=== PATIENT | male | born 1930 | race Caucasian/White ===

== ENCOUNTER 2016-11-08 14:00 | Inpatient (IN) | payer MEDICARE, OTHER ==
[~2016-11-08] VITALS: Ht 170.2 cm; Wt 64.2 kg
--- NOTE | ~2016-11-08 | OR ---
[facility] AGE: 86 Y [address] ROOM: [address] [address] LOCATION: GPCU ADMIT DATE: 11/08/2016 OR/Procedure Report DISCHARGE DATE: FAMILY PHYSICIAN: Jefferson Pandey MD ATTENDING PHYSICIAN: BETO SEPULVEDA SURGEON: Migel Karimi MD EMT I/99: DATE OF PROCEDURE: 11/12/2016 PREOPERATIVE DIAGNOSES: 1. Gross hematuria. 2. Underlying benign prostatic hypertrophy with bladder outlet obstruction. 3. Urinary incontinence - multifactorial. 4. Chronic kidney disease. 5. Greater than 13-gcap-reec history of smoking. POSTOPERATIVE DIAGNOSES: 1. Gross hematuria. 2. Underlying benign prostatic hypertrophy with bladder outlet obstruction. 3. Urinary incontinence - multifactorial. 4. Chronic kidney disease. 5. Greater than 30-nrpk-ggjz history of smoking. 6. Extensive urothelial carcinoma. PROCEDURE PERFORMED: Cystoscopy with transurethral resection and fulguration of bladder tumor with aborted retrograde secondary to unidentifiable orifices. ANESTHESIA: Sedation. INDICATION: This is an 86-year-old gentleman admitted with increasing cardiopulmonary issues. He was noted to have gross hematuria. He has been evaluated from a cardiac standpoint. He has significant disease, but he is going to be managed medically. They wanted to go ahead with evaluation of his gross hematuria. He presents at this time for cystoscopy and upper tract evaluation. I would note that there were no obvious mass lesions on his ultrasound. DESCRIPTION OF PROCEDURE: Having obtained informed consent from his daughter who is his power of senior attorney, the patient was taken to the operating room. He was prepped and draped sterilely and in lithotomy position. IV sedation was administered. A 21-Monegasque cystoscope was assembled and guided into the urethra. The course of the urethra was unremarkable back to the prostate which demonstrated marked hypertrophy. That would be contributing to his incontinence as well as a functional component. Moving into the bladder, we saw oozing and extensive malignancy. It was difficult to find any area of the bladder that was not involved. His trigone was completely distorted. Orifices were unidentifiable. Bladder examination was undertaken using the 30- PATIENT'S NAME: SHENANDOAH [facility] AGE: 86 Y [address] ROOM: G6334 [place], [place] [address] [facility] ADMIT DATE: 11/08/2016 OR/Procedure Report DISCHARGE DATE: FAMILY PHYSICIAN: Jefferson Pandey MD ATTENDING PHYSICIAN: BETO SEPULVEDA and 70-degree lenses. Considering the issues, the retrogrades were irrelevant at this point. I aborted that. I placed a resectoscope. I took loops of tissue where he was having obvious bleeding. I then spent some time with a roller ball, cauterizing. At the conclusion, a 22-Monegasque 3-way catheter and a B and O suppository were placed. The patient is not a candidate for cystectomy. He has extensive disease, and he is not a candidate for resection cystoscopically. Considering his other issues, we will try to manage him conservatively. If bleeding is an issue, we could buy some time with nephrostomy tubes. I will discuss that with his daughter. She is his power of senior attorney. She is a nurse, and she will understand. MIGEL KARIMI MD [facility]/modl /[id number] CC: Jefferson Pandey MD d: 11/12/16 1344 t: 11/16/16 1214, OPERATIVE SUMMARY
--- NOTE | ~2016-11-08 | ECHO ---
Transthoracic Echocardiography Report (TTE) Demographics Patient Name DENA ALEXANDRE Date of Study 11/09/2016 Patient Number [id number] Visit Number [id number] Date of 1930 Room Number G6334 Accession Number [id number] Gender Male Age 86 year(s) Referring Dannie De Jesus Page Designer Howard Best Physician MD Lisbeth Brice MD RDCS, RVT Physician Interpreting Yessenia Souza Ranch Helper Physician Supervising Ordering Physician Yvette Brice MD, MD/MLP Nurse Stress Chief Communications Officer Conclusions Contractility Score Summary At rest the following contractility abnormalities were noted: Hypokinesis of the Mid anterior, the Mid julia-septal, the Apical inferior, the Apical septal, the Apical lateral, the Apical anterior, the Basal anterior, the Basal julia-lateral and the Apical cap segments; Akinesis of the Mid julia-lateral, the Mid infero-septal, the Mid inferior, the Mid infero-lateral, the Basal infero-lateral, the Basal julia-septal, the Basal infero-septal and the Basal inferior segments. Summary The estimated left ventricular ejection fraction is 20% due to severe hypokinesia involving all LV segments except the the lateral wall which is mild to moderately hypokinetic.LV wall thickness is normal.LV is mildly dilated and is globular. LA is severely dilated. LA pressures are increased. Moderate to severe MR. Possibly severe valvular and mild AR. Severely dilated RA. Increased RA pressures. RV is moderately dilated and is moderately hypokinetic. There is mild TR with mild pulmonary hypertension. The pulmonary pressure (RVSP) is 40 mmHg. Procedure Type of Study TTE procedure:2D Echocardiogram, M-Mode, Doppler , Color Doppler. Procedure Date Date: 11/09/2016 Start: 06:58 AM Study Location: Inpatient Portable Technical Quality: Good visualization Indications:Edema. Appropriate Use Criteria: 9 Patient Status: Routine HR: 51 bpm BP: 101/58 mmHg M-Mode/2D Measurements LV Diastolic Dimension: 5.79 cm LV Systolic Dimension: 5.22 cm LV Septum Diastolic: 0.92 cm LV PW Diastolic: 1.08 cm AO Root Dimension: 2.3 cm Cardiac Output: 1.58 l/min LA Dimension: 3.9 cm LVOT: 1.9 cm LVOT VTI: 10.9 cm RV Base: 3.39 cm LV Stroke volume: 30.89 ml RV Length: 8.18 cm TAPSE: 1.06 cm TDI-S': 5.81 cm/s Doppler Measurements AV Peak Velocity: 3.5 m/s MV Peak E-Wave: 0.83 m/s AV Peak Gradient: 49 mmHg MV Peak A-Wave: 0.99 m/s AV Mean Gradient: 30 mmHg MV E/A Ratio: 0.84 LVOT Peak Velocity: 0.48 m/s MV P1/2t: 22 msec AV P1/2t: 168 msec TR Gradient:32.49 mmHg Estimated RAP:8 mmHg Estimated PASP: 40.49 mmHg Estimated RVSP: 40 mmHg A' Septal Velocity: 0.05 m/s E' Septal Velocity: 0.03 m/s A' Lateral Velocity: 0.07 m/s E' Lateral Velocity: 0.06 m/s Findings Left Ventricle LV is globular and mildly dilated.LVEF is severely reduced at 20%.There is severe hypokinesia involving all segments except the lateral wall which is mild to moderately hypokinetic.LV wall thickness is normal.There is evidence for increased LA pressure. Right Ventricle Moderately reduced right ventricular function. RV is mild to moderately dilated. Left Atrium The left atrium is severely dilated. Right Atrium Severely dilated RA.Increased RA pressures. Mitral Valve Moderate to severe mitral regurgitation by color Doppler. Mild mitral annular calcification. Mild thickening of the mitral valve leaflets. Aortic Valve The aortic valve is severely sclerotic. There is moderate to severe aortic regurgitation by color Doppler. There is severe aortic stenosis by the Continuity Equation. The peak velocity is 3.5 m/s, the mean gradient is 30 mmHg, and the valve area based on the continuity equation is 0.42 cm2, stroke volume index is 18 ml/m2. Tricuspid Valve Mild tricuspid regurgitation by color Doppler. There is mild pulmonary hypertension. The pulmonary pressure (RVSP) is 40 mmHg. Pulmonic Valve Trivial pulmonic valve regurgitation by color Doppler. Pericardial Effusion No evidence of pericardial effusion. Miscellaneous Visualized portions of the aortic root and ascending aorta appear normal in size. Pleural Effusion No evidence of pleural effusion. Contractility Score LV regional wall motion:(0-Non visualized 1-Normal 2-Hypokinesis 3-Akinesis 4-Dyskinesis 5-Aneurysm) Signature dtt: Libby Casas dtd: 11/09/16 0658 Physician Self Edit
--- NOTE | ~2016-11-08 | CON ---
PATIENT'S NAME: DENA ALEXANDRE [facility] AGE: 86 Y [address] ROOM: [address] [place], [place] [address] LOCATION: GPCU ADMIT DATE: 11/08/2016 Consultation DISCHARGE DATE: FAMILY PHYSICIAN: Jefferson Pandey MD ATTENDING PHYSICIAN: BETO CRAWFORD DATE OF CONSULTATION: 11/09/2016 REFERRING PHYSICIAN: Libby Casas MD REASON FOR CONSULTATION: Need for diuresis, nurses unable to place Bermudez, plus hematuria. HISTORY: This is a pleasant, 86-year-old gentleman admitted with increasing cardiopulmonary issues. He had edema and shortness of breath. He was admitted for further evaluation and management. Prior to diuresis, catheter was ordered. The nurses were unable to get a catheter in, and I believe that Dr. Crawford also tried. We were consulted, but we were likely going to see him anyway as Dr. Pandey had suggested that he get his hematuria evaluated while he was here. Relative to that, Dena tells me he was having some difficulty voiding at home. His daughter, who is an RN as well as his power of assistant district attorney, tells me he was having more trouble than he admits to. He was having grossly bloody urine on occasion. In addition, he was having incontinence. He has previously been on an alpha mark. His daughter does not think he was taking that. Relative to the hematuria, it may be BPH related in this 86-year-old gentleman, but we find that he also has a greater than 54-zkkk-skdo history of smoking. He tells me he stopped smoking a few years ago. He was prepped and draped. An 18 coude catheter was placed. We find concentrated and bloody urine. Importantly, he was not in retention. The nurses had scanned him, and he only had a couple of 100 mL of residual. At this point, I am going to get him started back on combination therapy. He will be on tamsulosin and finasteride. I reviewed the indications, risks, and benefits for a cystoscopy and retrograde with his daughter. Again, she is a nurse and the power of assistant district attorney, and she understands and agrees. In the meantime, with his chronic renal insufficiency and his hematuria, I am going to check an ultrasound to rule out any mass lesions or any hydronephrosis. Otherwise, he can be optimized from a current cardiopulmonary standpoint, and we can hopefully get his urinary tract evaluated while he is here. IMPRESSION: 1. Nurses unable to place Bermudez catheter. PATIENT'S NAME: DENA ALEXANDRE [facility] AGE: 86 Y [address] ROOM: [place] [address] [facility]: 11/08/2016 Consultation DISCHARGE DATE: FAMILY PHYSICIAN: Jefferson Pandey MD ATTENDING PHYSICIAN: BETO CRAWFORD 2. History of gross hematuria and smoking. 3. Benign prostatic hypertrophy/bladder outlet obstruction. 4. Urinary incontinence-multifactorial. 5. Chronic kidney disease. PLAN: As above. Thank you for the consultation, and I will follow up his progress. MIGEL KARIMI MD [facility]/kelvin /[id number] CC: Jefferson Pandey MD d: 11/09/16 1516 t: 11/16/16 1211, CONSULTATION REPORT
--- NOTE | ~2016-11-08 | DS ---
PATIENT'S NAME: BETTIEROXIDENA Nic [facility] AGE: 86 Y [address] ROOM: G6[address] [place], [place] [address] LOCATION: GPCU ADMIT DATE: 11/08/2016 Discharge Summary DISCHARGE DATE: 11/15/2016 FAMILY PHYSICIAN: Jefferson Pandey MD ATTENDING PHYSICIAN: Babs Crawford FINAL DIAGNOSES: 1. Hematuria. 2. Large bladder mass, refused evaluation. 3. Right pleural effusion. 4. Acute on chronic diastolic congestive heart failure. 5. Aspiration pneumonia. 6. Anorexia. 7. Acute kidney injury on chronic kidney disease 3. CONSULTATIONS: 1. Urology, Dr. Sanchez. 2. Cardiology, Dr. Casas. 3. GI, Dr. Dominguez. 4. Pulmonology, Dr. Gaspar. PROCEDURES: Cystoscopy with Dr. Sanchez. REASON FOR ADMISSION: This is an 86-year-old male who presented from an outlying facility with multiple problems including hypoxia, bilateral lower extremity edema, and anorexia. The patient also had weight loss. He was transferred from a referral facility. He was found to have cardiomegaly with right pleural effusion and also was found to have hematuria with significant nocturia. He was then further admitted to [facility] for further evaluation and management of his multiple medical conditions. Please see Dr. Crawford's admission H and P for further details. DIAGNOSTIC STUDIES: A transthoracic echocardiogram was done and showed hypokinesis of the mid anterior, mid anteroseptal, apical inferior, apical septal, apical lateral, apical anterior, and basal anterior segments. Akinesis of the mid anterolateral, mid inferoseptal, mid inferior, mid inferolateral, basal inferolateral, and basal anteroseptal were also noted. Basal inferoseptal and basal inferior segment akinesis noted as well. Ejection fraction was 20% due to severe hypokinesia of all left ventricular segments. Lateral LV wall thickness was normal. LA severely dilated. LA pressures increased. Ooydnxwe-hv-ehusqj MR noted. Severe valvular and mild AR noted. Severely dilated right atrial pressures noted. RV moderately dilated, moderately hypokinetic. Mild TR with mild pulmonary hypertension, and RVSP of 40 mmHg was noted. [facility] 86 Y [address] ROOM: G[address] [place], [place] [address] LOCATION: GPCU ADMIT DATE: 11/08/2016 Discharge Summary DISCHARGE DATE: 11/15/2016 FAMILY PHYSICIAN: Jefferson Pandey MD ATTENDING PHYSICIAN: Babs Crawford The patient had increased cardiac enzymes. Troponin-I of 0.667 on admission, subsequently was 0.406. ProBNP 30,320. Serial CBCs were done. White count on admission was 10.8, at the time of discharge it was 11.4; platelet count 131 on admission and 113 at discharge; hemoglobin and hematocrit were within normal range. Serial BMPs were done. Electrolytes were within normal range. The patient's creatinine was 1.4 on admission, at the time of discharge it was 1.9; BUN 51 on admission and 48 at the time of discharge. Liver function tests were within normal range. PT/INR normal. Procalcitonin level less than 0.05. TSH 1.48. Prealbumin level 12. D-dimer elevated at 3.7. PSA 0.19. Ultrasound of the kidney was done on admission to rule out mass and showed no renal mass, hydronephrosis, or perinephric fluid identified. Atrophic changes of the right kidney were noted. Small amount of free fluid in the abdomen and pelvis was noted. Pleural fluid noted in the lower right hemothorax. CT imaging likely helpful. The patient underwent a modified barium swallow study that showed normal coaptation, showed aspiration of thin and nectar fluids. Cough reflex present. The patient underwent a V/Q scan for dyspnea and elevated D-dimer that showed severe COPD and low probability of PE. Chest x- ray was later done and showed severe COPD. Pleural and parenchymal opacity at the right chest base obscured the diaphragm, appears to consist of pleural fluid and atelectasis. No CHF was noted. A repeat chest x-ray was done for followup of right pleural effusion and showed emphysematous changes in the lung parenchyma with hyperinflation, opacity at the right infrahilar area and right base consistent with pleural fluid, and lung consolidation was noted. Slight improvement in overall radiographic appearance since prior imaging was noted. Ultrasound of the chest was done for pleural effusion and showed moderate-sized right pleural fluid collection. Urine culture showed diphtheroids. Blood culture was negative. Sputum culture showed Carmella albicans with gram-negative rods, few gram-positive cocci, rare gram-positive rods, and moderate white blood cells with few epithelial cells. Anaerobic culture was negative. HOSPITAL COURSE: The patient was admitted for evaluation and management of anorexia, increased shortness of breath, and generalized deconditioning. The patient was thought to have CHF. A 2D echocardiogram was done, and findings are as above. Cardiology, Dr. Casas, was consulted. The patient was given Lasix initially. He also had hematuria. Ultrasound of the kidneys was done. Dr. Sanchez was consulted, and findings were as above. The patient also had anorexia and weight loss. GI was consulted. They recommended endoscopy for the patient. The patient refused endoscopy. He was started on a Lasix infusion for his right pleural fluid collection and also findings of CHF. He was supplemented with potassium chloride as well during this. Bermudez catheter showed the patient had hematuria. The patient's ejection fraction was found to be 20%. Cardiology recommended optimizing medical therapy at this point of time. The patient was refusing all invasive PATIENT'S NAME: DENA ALEXANDRE [facility] AGE: 86 Y [address] ROOM: [place] [address] LOCATION: GPCU ADMIT DATE: 11/08/2016 Discharge Summary DISCHARGE DATE: 11/15/2016 FAMILY PHYSICIAN: Jefferson Pandey MD ATTENDING PHYSICIAN: Babs Crawford. Family also did not want any further invasive procedures. The patient wished to undergo cystoscopy. Dr. Sanchez was consulted, and the patient underwent a cystoscopy that showed a large bladder mass. The patient then decided to not undergo any further evaluation for his bladder mass. He underwent a modified barium swallow study and was initially placed on precautions based on the modified barium swallow study. He later decided that he did not want any further testing and just wanted to be made comfortable. He was placed on regular diet subsequently. His medications were then optimized. I did consult Dr. Gaspar who did a bedside ultrasound and found that the patient had moderate-sized right pleural effusion, but did not require a tap. The patient then decided that he wanted to be transferred to a swing bed in [place] near his home. He refused all further testing at this point of time. Plan is for the patient to go on hospice if he deteriorates. Family decided that the patient should be on hospice if further deteriorated. The patient will be discharged to [place] swing bed tomorrow morning. Please see Dr. Duarte's addendum for further details. The patient was discharged to [place] swing bed in stable condition. DISCHARGE INSTRUCTIONS: The patient is discharged to [facility] bed in stable condition. Follow up with Dr. Casas in [place]. Follow up with PCP in 3 to 4 days' time. The patient is DNR/DNI. Regular diet is recommended for the patient. No calorie count is needed. The patient is not n.p.o. Weightbearing is as tolerated. OT, PT, and Speech Therapy to evaluate and treat as indicated. O2 as needed to keep saturations more than 90%. CBC and BMP at followup with PCP. Flutter valve q.2 hours p.r.n. as needed. The patient has a urinary catheter that may be removed based on the patient's wishes or Urology recommendations. He may not have alcoholic beverages. Rehab potential is poor. Discharge potential is poor. The patient and family aware of condition and prognosis and were updated by me. May crush appropriate medications. DISCHARGE MEDICATIONS: 1. Amiodarone 100 mg p.o. b.i.d. for tachycardia. 2. Augmentin 875 mg p.o. b.i.d. for 3 days for aspiration pneumonia. 3. Lipitor 40 mg p.o. daily for dyslipidemia. 4. Proscar 5 mg p.o. daily for BPH. 5. Lasix 20 mg p.o. q.a.m. for CHF. 6. Isordil 5 mg p.o. t.i.d. for hypertension. 7. Protonix 40 mg p.o. daily for GERD. PATIENT'S NAME: EDNA ALEXANDRE [facility] AGE: 86 Y [address] ROOM: [facility] [place] [address] LOCATION: GPCU ADMIT DATE: 11/08/2016 Discharge Summary DISCHARGE DATE: 11/15/2016 FAMILY PHYSICIAN: Jefferson Pandey MD ATTENDING PHYSICIAN: Babs Crawford 8. Senokot one tablet p.o. q.h.s. for constipation. 9. [place] 5/325 mg 1 tablet p.o. q.6 hours p.r.n. pain. 10. Multivitamin one tablet p.o. daily supplement. This patient was managed by hospitalist and cardiology, pulmonology, and urology teams during this admission. GLORIA DAUGHERTY MD [place]/kelvin /[id number] d: 11/18/16 1408 t: 11/30/16 1343, DISCHARGE SUMMARY
--- NOTE | ~2016-11-08 | CON ---
[facility] AGE[facility] 86 Y [address] ROOM: [id number] [place], [place] [id number] [facility]: [facility] ADMIT DATE: 11/08/2016 Consultation DISCHARGE DATE: FAMILY PHYSICIAN: Jefferson Pandey MD ATTENDING PHYSICIAN: BETO CRAWFORD DATE OF CONSULTATION: 11/09/2016 REFERRING PHYSICIAN: Libby Casas MD An 86-year-old male patient of Dr. Pandey and Dr. Crawford. Dear colleagues: Thank you for asking me to see Mr Hurt, whom I am seeing on November 09, 2016, for swelling in his ankles as well as shortness of breath. He is slightly forgetful at this time, and he is not very clear about dates, but it appears as if he was reasonably well about a year ago. He notes at least for the past 6 months or even longer, he has been noticing slowly progressive worsening of shortness of breath to the point where he is currently in functional class III with no paroxysmal nocturnal dyspnea or orthopnea. He is now short of breath at rest. He denies having any chest pains. He is not very active anymore. He has no history of lightheadedness, dizziness, syncope, or presyncope. He denies any palpitation, even though he has a sense that there is something fluttering in his chest very briefly on rare occasions. His ankle has been swelling up for about 3 months. The patient has history of hypertension, and he quit smoking pipe 3 years ago. He denies diabetes, elevated cholesterol, or family history of premature coronary artery disease. There is no prior history of DE or angina or nitroglycerin use. There is no history of rheumatic fever, heart murmur, congestive heart failure, or atrial fibrillation that he knows of. MEDICATIONS: His current list of medications are: 1. Protonix 40 mg a day. 2. Finasteride 5 mg a day. 3. Losartan and hydrochlorothiazide 2 daily. 4. Aspirin 325 mg a day. 5. Tamsulosin 0.4 mg at bedtime. 6. Senna. 7. Furosemide 40 mg yesterday. ALLERGIES: NO KNOWN DRUG ALLERGIES. [facility] 86 Y [address] ROOM: [id number] [place] [id number] LOCATION: [facility] ADMIT DATE: 11/08/2016 Consultation DISCHARGE DATE: FAMILY PHYSICIAN: Jefferson Pandey MD ATTENDING PHYSICIAN: BETO CRAWFORD PAST MEDICAL HISTORY: 1. History of pelvic fracture in 2013 secondary to an accidental fall. 2. BPH. 3. Lymph node resection from left side of the jaw. 4. Tonsillectomy and adenoidectomy. 5. Bilateral cataract extraction. SOCIAL HISTORY: The patient is . He denies abusing alcohol. His appetite has been poor for 3 years. This is particularly true for meat. He has lost about 10 pounds in weight in the last 3 years but has gained some weight lately because of edema. His sleep is fair. 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 FAMILY HISTORY: No premature coronary artery disease. REVIEW OF SYSTEMS: A 12-point review of systems reveals the following positives. 1. Macular degeneration. 2. Hardness of hearing. 3. Occasional dry cough. 4. Benign prostatic hypertrophy. 5. Arthritis involving the ankles. PHYSICAL EXAMINATION: VITAL SIGNS: On examination, his blood pressure is 128/66, heart rate is in the 90s and regular, respiration is 16, afebrile. HEENT: Normal. NECK: Supple with no JVD, thyromegaly, lymphadenopathy, or carotid bruit. HEART: PMI is not well located. First and second heart sounds are regular. There are no added sounds. He does have a grade 2/6 ejection systolic murmur best heard in the aortic area. CHEST: Clear to auscultation with decreased breath sounds in the right base. ABDOMEN: Soft, nontender. EXTREMITIES: Reveal 1+ to 2+ edema. CENTRAL NERVOUS SYSTEM: Overall appears to be intact. LABORATORY AND DIAGNOSTIC DATA: His lab works reveal creatinine of 1.4, potassium 5.0. ProBNP of 30,320. Normal WBC and hemoglobin, platelet count is 103. Apparently, his chest x-ray reveals right-sided pleural effusion. ASSESSMENT: 1. An 86-year-old male patient with hypertension, who is an ex-pipe smoker PATIENT'S NAME: [facility] AGE: 86 Y [address] ROOM: [address] [place] [id number] LOC[facility]: [facility] ADMIT DATE: 11/08/2016 Consultation DISCHARGE DATE: FAMILY PHYSICIAN: Jefferson Pandey MD ATTENDING PHYSICIAN: BETO CRAWFORD with congestive heart failure. His echocardiogram today revealed an ejection fraction of 20% and has severe aortic stenosis as well as moderate to severe mitral regurgitation and mild pulmonary hypertension. 2. Chronic kidney disease. 3. Weight loss and poor appetite of unknown reasons. It could be his congestive heart failure causing problems too. RECOMMENDATIONS: 1. His D-dimer was elevated, so we will obtain a V/Q scan today. 2. Lovenox subcu daily. 3. We will hold of losartan for somewhat of a cushion for using diuretics. 4. Lasix infusion for about 6 hours today and evaluate his BUN, creatinine, as well as his fluid output before making any decisions regarding more diuresis. Again, appreciate this opportunity to participate in the care of Mr Hurt. In the meantime, we will also rule him out for DE as well. MD FLAVIA LY/kelvin /[id number] d: 11/09/16 2141 t: 11/30/16 1323, CONSULTATION REPORT
--- NOTE | ~2016-11-08 | HP ---
PATIENT'S NAME: DENA HURT [facility] AGE: 86 Y [address] ROOM: [id number] [place], [place] [address] LOCATION: [facility] ADMIT DATE: 11/08/2016 History & Physical DISCHARGE DATE: FAMILY PHYSICIAN: Jefferson Pandey MD ATTENDING PHYSICIAN: BETO SEPULVEDA DATE OF SERVICE: 11/08/2016 CHIEF COMPLAINT: Multiple generalized problems with hypoxia. HISTORY OF PRESENT ILLNESS: Mr. Hurt is an 86-year-old male who is a primary patient of Dr. Jefferson Pandey of [place], [place]. He reports that he was seen in the office this morning, Dr. Pandey told him he had multiple issues requiring further evaluation, and he was directed to come to our hospital and was directly admitted this afternoon. He reports "I am full of water, in my legs, and around my heart and scrotum." He reports that he has been short of breath for about 6 months. In addition, he reports "I have something wrong with my stomach." He reports that he can eat cereal and toast for breakfast, but after that he just cannot get the food down; although, he denies odynophagia and dysphagia, he said just looking at the food can make him nauseated, and he reports that the nausea comes suddenly, it is not like a lingering thing, but when it does, he will end up vomiting. In addition to the small breakfast that he eats, he says he will be able to get down a ezgh-o-vyotna of Boost mixed with some milk, bur other foods such as a steak he says I just can not get it down. He says he has a dull ache in the stomach, which is about constant. He says although he told the nurse he thought he had congestive heart failure; although, he reports he has not seen a heart doctor, I have no reports of any heart tests except for his chest x-ray and heart tests such as an echo. I did attempt to reach his primary care physician, Dr. Pandey, but that was after his office closed and there was no after hours contact number available. PAST MEDICAL HISTORY: Hypertension, BPH, and pelvic fracture in 2013. PAST SURGICAL HISTORY: Bilateral cataract resection (both done in [place]), lymph node resection from the left-side of his jaw in the distant past, and tonsillectomy. ALLERGIES: NO KNOWN DRUG ALLERGIES. HOME MEDICATIONS: 1. Aspirin 325 mg p.o. daily. PATIENT'S NAME: DENA HURT [facility] AGE: 86 Y [address] ROOM: [place] [address] LOCATION: [facility] ADMIT DATE: 11/08/2016 History & Physical DISCHARGE DATE: FAMILY PHYSICIAN: Jefferson Pandey MD ATTENDING PHYSICIAN: BETO SEPULVEDA 2. Losartan/hydrochlorothiazide 100/25 mg 1/2 to 1 tab p.o. daily. 3. Lutein tablet 6 mg p.o. daily. 4. Multiple vitamin 1 daily. 5. Spironolactone 25 mg at h.s. 6. Tamsulosin 0.5 mg at h.s. SOCIAL HISTORY: He is and he and his have lived together for 60 or more years since they have been . She is 10 years older than he is and recently had a stroke, was ill, and he said he is having a hard time caring for her. They have one daughter, her name is Rupal [place]. She is [id number]. 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 He is a former pipe smoker, he smoked a pipe for 50 years, few cigarettes, much more prior to that. He quit smoking his pipe 3 years ago, but did admit that he cheated a little bit after that. FAMILY HISTORY: His mother at 97-1/2 years old of an AK and stroke. His father in his 70s after a gallbladder operation with pneumonia. He has been getting around without any ambulatory assistance at home and he did not have any oxygen at home. REVIEW OF SYSTEMS: GENERAL: Positive for 12-14 pounds weight loss over the past 6 months and decreased appetite with excessive fatigue. HEENT: Negative for headache, blurred vision, and dizziness. Positive for history of cataract resection. Positive for reading glasses. Negative for any sinus congestion, stuffiness, nosebleeds, sore throat, or dysphagia. PULMONARY: He does say he gets dyspneic, he can walk 1-2 blocks, but has to "take it easy," and no orthopnea, intermittent cough, which is intermittently productive of clear sputum without wheezing or chest pain and he denies any blood in it. 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 He is unaware of having had a murmur. He reports the history of swelling in his legs, has been there for 3-4 months. GI: He reports occasional heartburn, but definitely denies odynophagia and dysphagia. The sudden episodes of nausea with some vomiting have been happening for about a year ago. He denies diarrhea. He says occasionally he will still have a soft stool, but with his decreased intake, that is not happening very much, and he has had some constipation. He definitely denies bloating with cramping or hematemesis, hematochezia, or melena. GENITOURINARY: He says he urinates every 2 hours at night and is alternating his water intake. Does not alter this pattern of urinating frequently at night. He has noticed blood in his urine "a little bit." He hardly has any flow; so, apparently he does have difficulty getting the flow started. He PATIENT'S NAME: DENA HURT [facility] AGE: 86 Y [address] ROOM: [id number] [place] [address] LOCATION: [facility] ADMIT DATE: 11/08/2016 History & Physical DISCHARGE DATE: FAMILY PHYSICIAN: Jefferson Pandey MD ATTENDING PHYSICIAN: BETO SEPULVEDA said he quit taking the medicine that he says that help him go; although, Flomax is still on his list, I am not sure when the last time he took that was. NEUROLOGIC: He denies weakness, numbness, confusion, dysarthria, syncope, or recent falls, but does admit that his balance is not great and he has to "watch my feet." He denies any memory loss. HEMATOLOGIC: He is not sure if he has anemia, but he denies abnormal bleeding, bruising, history of clots, and has no history of venous thromboembolism or pulmonary embolism. MUSCULOSKELETAL: He has arthritis in his right ankle for which he occasionally uses topical pain relief. ENDOCRINE: He has no diabetes or thyroid history. SKIN: Dry. He denies any problems with rashes. PSYCHIATRIC: He denies depression and anxiety and he sleeps okay except for when he is urinating, he does admit to staying in bed about 12 hours a day plus a couple of naps. PHYSICAL EXAMINATION: GENERAL: This is a thin well-developed elderly male who is awake, alert, and very pleasant. VITAL SIGNS: Temperature is 97.5, respirations are 20, pulse 86, blood pressure 138/88, on admission to the floor, he was 77% saturated on room air and nasal cannula was placed at 2 L, he was a 100% saturated. HEENT: There is some mild periorbital edema. Pupils are equal and round. Sclerae are anicteric. Palpebral conjunctivae pale without exudate. Oropharynx is clear. NECK: Supple without lymphadenopathy. LUNGS: Lungs have diminished breath sounds throughout with dullness to percussion on the right greater than the left and minimal breath sounds almost midway up and he was clear in the apices. CARDIOVASCULAR: There is a 4/6 systolic murmur with a gallop. ABDOMEN: Relatively flat, soft, diffusely mildly tender. No mass, no hepatosplenomegaly is appreciated. There is a suprapubic edema and mild tenderness. There is no inguinal lymphadenopathy. There is mild scrotal edema. GENITOURINARY: He is an uncircumcised male and because the RN was unable to place the Bermudez and was concerned for obstruction, I attempted and also could not insert the Bermudez. Urine was very dark viry prior to these attempts and he had some bloody urine immediately after that attempt. EXTREMITIES: There is 2+ pitting edema up to the thighs, but especially in the lower legs, this is not significant pedal edema, and he has no good palpable pedal pulses, feet are little less more, but very dry cracked red skin. NEUROLOGIC: He is moving all extremities equally and is awake, alert, and oriented to person, place, and time, and is a fairly good historian. PATIENT'S NAME: DENA HURT [facility] AGE: 86 Y [address] ROOM: [place] [address] LOCATION: [facility] ADMIT DATE: 11/08/2016 History & Physical DISCHARGE DATE: FAMILY PHYSICIAN: Jefferson Pandey MD ATTENDING PHYSICIAN: BETO SEPULVEDA LABORATORY DATA: From [facility] [place] [facility], sodium 135, potassium 4.9, chloride 97, CO2 27, albumin 3.6, creatinine 1.5, BUN 57, glucose 112, calcium 9.1, phosphorus 3.7, and eGFR is 47. The natriuretic peptide is 2140, range being 0-100. Urinalysis showed cloudy yellow urine, specific gravity 1.018, pH 5, albumin 100, blood large, leukocyte esterase moderate, white blood cells 10-20, and rbcs 25-50 with 1+ bacteria. RADIOGRAPHIC STUDIES: Chest x-ray showed a moderate volume right pleural effusion with associated compressive atelectasis or consolidation, which is new compared to his chest x- ray from 07/01/2016. There was cardiomegaly with atherosclerotic vascular disease. The report reads "no overt edema." Plain film of the abdomen showed moderate rectosigmoid stool volume, no complete bowel obstruction, demineralization, degenerative changes, and moderate volume pleural effusion. ASSESSMENT AND PLAN: This is a pleasant 86-year-old male from [place], [place] who presents with multiplicity of issues. 1. Hypoxia with cardiomegaly and right pleural effusion. He is doing well on O2 at this time. He has had some chronic dyspnea. The differential is broad and likely some element of heart failure with his elevated BNP and he may even have chronic pulmonary embolisms. We will check echocardiogram in the morning. I have consulted Dr. Casas. Because of his elevated creatinine today, we would not get a dye study, but this could be considered tomorrow as we watch his renal function. 2. Positive urinalysis with hematuria and significant nocturia, in elderly male this may be due to benign prostatic hypertrophy and associated obstruction, which is evidenced by inability to pass catheter versus prostate or bladder malignancy. I have consulted Dr. Sanchez to place a catheter. He does not have a large amount of urine in his bladder and in fact at this time part of his inability to void just may be due to contracted volume status. We will start empiric antibiotic therapy for urinary tract infection and the urine has been sent for culture. 3. Weight loss with difficulty tolerating foods. It is unclear whether there is an anatomic issue, it sounds as if it is more a distaste for food and lack of appetite, which could be related to heart failure or some other chronic process including malignancy. In addition, as I was completing my visit with him, his daughter arrived and reports she believes he may be aspirating. He will be NPO until speech can evaluate him in the morning. 4. Chronic kidney disease versus acute kidney problem with creatinine of 1.5 and elevated BUN. With his chronic decreased intake, I suspect he may need some fluid at this time. We will need to consider consulting Gastroenterology for evaluation and whether that may be more appropriately done as an outpatient is yet to be seen. X-rays indicates some constipation and we PATIENT'S NAME: DENA HURT [facility] AGE: 86 Y [address] ROOM: [place] [address] LOCATION: [facility] ADMIT DATE: 11/08/2016 History & Physical DISCHARGE DATE: FAMILY PHYSICIAN: Jefferson Pandey MD ATTENDING PHYSICIAN: BETO SEPULVEDA will try gentle laxatives from above and a Fleet's enema if he is unable to have a normal bowel movement. We will also check a prealbumin with the morning labs. 5. Deep vein thrombosis prophylaxis with bilateral lower extremity sequential compression devices. 6. Disposition. We hope to be able to discharge him home in the near future. I have discussed the plan with his daughter, Rupal, who is his [id number], and the patient did say he wants to be a full-code at this time. BETO SEPULVEDA MD LM/modl /[id number] D: 215 T: 653 HISTORY & PHYSICAL
--- NOTE | ~2016-11-08 | CON ---
PATIENT'S NAME: DENA [facility]LEXANDRE [facility] AGE: 86 Y [address] ROOM: [id number] [place], [place] [address] LOCATION: [facility] ADMIT DATE: 11/08/2016 Consultation DISCHARGE DATE: FAMILY PHYSICIAN: Jefferson Pandey MD ATTENDING PHYSICIAN: BETO SEPULVEDA DATE OF CONSULTATION: 11/09/2016 REFERRING PHYSICIAN: Libby Casas MD REFERRING PROVIDER: Jeremie Omalley M.D. REASON FOR CONSULTATION: Dysphagia. HISTORY OF PRESENT ILLNESS: This is a very pleasant 86-year-old male, who is a patient of Dr. Jefferson Pandey of [place], [place]. The patient was seen by his primary care this morning and advised to come to the emergency room with "multiple issues." The patient did report significant shortness of breath as well as edema within his extremities, legs, and "on my heart." The patient has been complaining of shortness of breath for the past 6 months. He also reports approximately 5 days ago having "upset stomach." He did take Pepto-Bismol at that time. He denies any complaints right now of his abdomen. The patient did state that at that time he was having darker stool after taking the Pepto-Bismol, though denies any other complaints within his stool. On admission, the patient's daughters were stating that the patient was complaining of dysphagia as well as need for regurgitation for clearance of food. We were asked to see in consultation for dysphagia as well as need for regurgitation of food. The patient was seen and examined. He denies any complaints very adamantly regarding dysphagia, odynophagia, need for regurgitation, or globus sensation. The patient did state that his bowels are normal. He denies any complaints of his abdomen as previously discussed with his "upset stomach." The patient does state that his stools have been "darker," though only notices after taking his Pepto-Bismol. He denies any chest pain or chest pressure. No nausea or vomiting. He does state that his shortness of breath and hypoxia have much improved since being admitted. The patient denies any history of upper endoscopy. He does report having a colonoscopy numerous years ago that was "negative." The patient denies any chest pain, chest pressure, shortness of breath, fever, chills, or night sweats. PAST MEDICAL HISTORY: Hypertension, BPH, and pelvic fracture in 2014. PAST SURGICAL HISTORY: Bilateral cataract resection, lymph node resection from left side of his jaw, PATIENT'S NAME: DENA ALEXANDRE [facility] AGE: 86 Y [address] ROOM: [facility] [place] [address] [facility] ADMIT DATE: 11/08/2016 Consultation DISCHARGE DATE: FAMILY PHYSICIAN: Jefferson Pandey MD ATTENDING PHYSICIAN: BETO SEPULVEDA and tonsillectomy. No history of upper endoscopy. Colonoscopy number of years ago that he reports as negative. SOCIAL HISTORY: The patient is . The patient does have 1 child. 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 He denies any illicit drug use or alcoholism. FAMILY HISTORY: The patient's mother of myocardial infarction and stroke. The patient's father status post gallbladder operation with pneumonia. ALLERGIES: NO KNOWN MEDICATION ALLERGIES. CURRENT MEDICATIONS: Please refer to the medication administration record. REVIEW OF SYSTEMS: A 10-point review of systems was completed. All were negative except for those identified in the history of present illness. PHYSICAL EXAMINATION: GENERAL: Very pleasant, elderly, 86-year-old male, lying in bed, who appears to be in no acute distress. VITAL SIGNS: Temperature 97.5, pulse 94, respirations 16, blood pressure 128/66, and oxygen saturations 93% on 2 L. SKIN: Isabela, warm, and dry. No jaundice. HEENT: Head is normocephalic and atraumatic. Pupils are equal, round, and reactive to light. Sclerae are clear. Nonicteric. Oral mucosa is pink and moist. No thyromegaly. NECK: Soft and supple. CARDIOVASCULAR: Regular. Normal S1 and S2. RESPIRATORY: Respirations even and unlabored. LUNGS: Clear to auscultation. ABDOMEN: Soft, round, nontender, and nondistended. Bowel sounds positive x4 quadrants. MUSCULOSKELETAL: No muscle weakness or atrophy. EXTREMITIES: No clubbing, cyanosis, or edema. NEUROLOGICAL: Grossly nonfocal. LABS AND DIAGNOSTICS: ProBNP elevated at 30,320. White blood cell count of 9.7, hemoglobin of 14.0, hematocrit of 42.3, and platelet of 103. Chemistry panel includes a glucose of 83, BUN of 51, creatinine 1.4, sodium 139, potassium of 5.0, chloride of PATIENT'S NAME: DENA ALEXANDRE [facility] AGE: 86 Y [address] ROOM: [place] [address] LOCATION: [facility] ADMIT DATE: 11/08/2016 Consultation DISCHARGE DATE: FAMILY PHYSICIAN: Jefferson Pandey MD ATTENDING PHYSICIAN: BETO SEPULVEDA 108, CO2 of 20, albumin of 3.0, phosphorus of 3.5, magnesium of 2.3, prealbumin of 12, D-dimer elevated at 3.70. The patient also underwent a modified barium swallow per verbal report. The patient had silent aspiration, though no formal report available at this time. ASSESSMENT AND PLAN: Again, this is a very pleasant 86-year-old male as we were asked to see in consultation for dysphagia as well as need for regurgitation of food. During my interview, no family was at bedside as this was expressed as a family concern. The patient was very adamant that there was no complaints of dysphagia or regurgitation of food. No history of heartburn, globus sensation, or food getting stuck. He is very adamant that he does not feel that there is any GI symptoms concerning at this time. I discussed this with Dr. Omalley. We would be happy to assist and intervene if the patient does have any significant problems. At this time, we will hold off with any further evaluation per the patient's discussion at this time. Thank you for this consult and allowing us to participate in the care of this patient. MICH SANTOS, BANQUET STEWARD FOR MD BRYAN HAMMOND/modl /[id number] d: 11/09/16 2333 t: 12/07/16 0811, CONSULTATION REPORT
[2016-11-08] MEDS ORDERED: CENTRUM SILVER1 EAC5 PO (16:33)
[2016-11-08] MEDS ORDERED: ASPIRIN325 MG PO (16:33)
[2016-11-08] MEDS ORDERED: LUTEIN6 M1 PO (16:33)
[2016-11-08] MEDS ORDERED: HYZAAR 100-251 EACH PO (16:35)
[2016-11-08] MEDS ORDERED: ALDACTONE25 MG PO (16:35)
[2016-11-08] MEDS ORDERED: FLOMAX0.4 MG PO (16:37)
[2016-11-08 20:31] LABS: BASOPHIL % 0.4 %; EOSINOPHIL # 0.1 K/uL (0.0-0.5); EOSINOPHIL % 0.8 %; HEMATOCRIT 47.7 % (33.0-50.0); HEMOGLOBIN 15.6 g/dL (11.0-16.0); IMMATURE GRANULOCYTE % 0.3 %; LYMPHOCYTE % 18.8 %; MCH 31.1 pg (27.0-34.0); MCHC 32.7 gm/dL (32.0-36.5); MCV 95.2 fl (83.0-98.0); MONOCYTE % 8.9 %; MPV 10.7 fl (9.4-12.4); NEUTROPHIL # (ANC) 7.7 K/uL (1.4-9.0); NEUTROPHIL % 70.8 %; NRBC % 0 /100WBC (0-0.00); PLATELET COUNT 131 K/uL (150-450); RBC 5.01 M/uL (3.50-5.50); RDW-CV 18.1 % (11.9-14.6); WBC 10.8 K/uL (4.0-11.0)
[2016-11-09 03:23] LABS: BASOPHIL % 0.3 %; EOSINOPHIL # 0.1 K/uL (0.0-0.5); EOSINOPHIL % 0.8 %; HEMATOCRIT 42.3 % (33.0-50.0); IMMATURE GRANULOCYTE % 0.3 %; LYMPHOCYTE # 1.7 K/uL (0.8-4.0); LYMPHOCYTE % 17.5 %; MCH 31.3 pg (27.0-34.0); MCHC 33.1 gm/dL (32.0-36.5); MCV 94.4 fl (83.0-98.0); MONOCYTE # 0.8 K/uL (0.0-1.0); MONOCYTE % 8.4 %; MPV 11.1 fl (9.4-12.4); NEUTROPHIL # (ANC) 7.1 K/uL (1.4-9.0); NEUTROPHIL % 72.7 %; NRBC % 0 /100WBC (0-0.00); RBC 4.48 M/uL (3.50-5.50); RDW-CV 17.5 % (11.9-14.6); WBC 9.7 K/uL (4.0-11.0)
[2016-11-09 03:25] LABS: PLATELET COUNT 103 K/uL (150-450)
[2016-11-09 03:40] LABS: CALCIUM 8.2 mg/dL (8.5-10.5); CREATININE 1.4 mg/dL (0.6-1.3); MAGNESIUM 2.3 mg/dL (1.3-2.6); PHOSPHORUS 3.5 mg/dL (2.5-4.9)
[2016-11-10 02:35] LABS: BASOPHIL % 0.4 %; EOSINOPHIL # 0.2 K/uL (0.0-0.5); EOSINOPHIL % 1.7 %; HEMATOCRIT 44.5 % (33.0-50.0); HEMOGLOBIN 14.7 g/dL (11.0-16.0); IMMATURE GRANULOCYTE % 0.2 %; LYMPHOCYTE # 1.5 K/uL (0.8-4.0); LYMPHOCYTE % 13.2 %; MCH 31.4 pg (27.0-34.0); MCV 95.1 fl (83.0-98.0); MONOCYTE % 9.1 %; MPV 11.8 fl (9.4-12.4); NEUTROPHIL # (ANC) 8.5 K/uL (1.4-9.0); NEUTROPHIL % 75.4 %; NRBC % 0 /100WBC (0-0.00); PLATELET COUNT 123 K/uL (150-450); RBC 4.68 M/uL (3.50-5.50); RDW-CV 17.8 % (11.9-14.6); WBC 11.3 K/uL (4.0-11.0)
[2016-11-10 02:58] LABS: ANION GAP 15.8 (10.0-19.0); CALCIUM 8.1 mg/dL (8.5-10.5); CREATININE 1.4 mg/dL (0.6-1.3); POTASSIUM 4.8 mMol/L (3.7-5.1); TOTAL BILIRUBIN 0.8 mg/dL (0.0-1.5); TOTAL PROTEIN 5.3 g/dL (6.0-8.4)
[2016-11-11 06:16] LABS: BASOPHIL % 0.4 %; EOSINOPHIL # 0.2 K/uL (0.0-0.5); EOSINOPHIL % 2.2 %; HEMATOCRIT 45.8 % (33.0-50.0); HEMOGLOBIN 15.3 g/dL (11.0-16.0); IMMATURE GRANULOCYTE % 0.4 %; LYMPHOCYTE # 1.7 K/uL (0.8-4.0); LYMPHOCYTE % 17.2 %; MCH 31.5 pg (27.0-34.0); MCHC 33.4 gm/dL (32.0-36.5); MCV 94.2 fl (83.0-98.0); MONOCYTE # 0.8 K/uL (0.0-1.0); MONOCYTE % 8.4 %; MPV 11.7 fl (9.4-12.4); NEUTROPHIL % 71.4 %; NRBC % 0 /100WBC (0-0.00); PLATELET COUNT 106 K/uL (150-450); RBC 4.86 M/uL (3.50-5.50); RDW-CV 17.7 % (11.9-14.6); WBC 9.9 K/uL (4.0-11.0)
[2016-11-11 06:27] LABS: ANION GAP 11.6 (10.0-19.0); CALCIUM 8.4 mg/dL (8.5-10.5); CREATININE 1.5 mg/dL (0.6-1.3); POTASSIUM 4.6 mMol/L (3.7-5.1)
[2016-11-12 03:55] LABS: BASOPHIL % 0.4 %; EOSINOPHIL # 0.2 K/uL (0.0-0.5); EOSINOPHIL % 1.7 %; HEMATOCRIT 42.6 % (33.0-50.0); HEMOGLOBIN 14.1 g/dL (11.0-16.0); IMMATURE GRANULOCYTE % 0.3 %; LYMPHOCYTE # 1.3 K/uL (0.8-4.0); LYMPHOCYTE % 12.9 %; MCH 31.8 pg (27.0-34.0); MCHC 33.1 gm/dL (32.0-36.5); MCV 95.9 fl (83.0-98.0); MONOCYTE # 0.8 K/uL (0.0-1.0); MONOCYTE % 8.4 %; MPV 11.2 fl (9.4-12.4); NEUTROPHIL # (ANC) 7.4 K/uL (1.4-9.0); NEUTROPHIL % 76.3 %; NRBC % 0 /100WBC (0-0.00); PLATELET COUNT 104 K/uL (150-450); RBC 4.44 M/uL (3.50-5.50); RDW-CV 17.6 % (11.9-14.6); WBC 9.7 K/uL (4.0-11.0)
[2016-11-12 04:03] LABS: INR - (THERAPEUTIC) 1.1 (0.9-1.1); PROTIME 11.4 SECONDS (9.6-11.1)
[2016-11-12 04:19] LABS: ANION GAP 12.6 (10.0-19.0); CALCIUM 8.2 mg/dL (8.5-10.5); CREATININE 1.5 mg/dL (0.6-1.3); POTASSIUM 4.6 mMol/L (3.7-5.1)
[2016-11-13 03:52] LABS: BASOPHIL % 0.3 %; EOSINOPHIL # 0.1 K/uL (0.0-0.5); EOSINOPHIL % 1.1 %; HEMATOCRIT 44.4 % (33.0-50.0); HEMOGLOBIN 14.1 g/dL (11.0-16.0); IMMATURE GRANULOCYTE % 0.3 %; LYMPHOCYTE # 1.6 K/uL (0.8-4.0); LYMPHOCYTE % 12.7 %; MCH 30.9 pg (27.0-34.0); MCHC 31.8 gm/dL (32.0-36.5); MCV 97.2 fl (83.0-98.0); MONOCYTE % 8.1 %; MPV 12.1 fl (9.4-12.4); NEUTROPHIL # (ANC) 9.5 K/uL (1.4-9.0); NEUTROPHIL % 77.5 %; NRBC % 0 /100WBC (0-0.00); PLATELET COUNT 117 K/uL (150-450); RBC 4.57 M/uL (3.50-5.50); RDW-CV 17.8 % (11.9-14.6); WBC 12.3 K/uL (4.0-11.0)
[2016-11-13 05:19] LABS: CALCIUM 8.3 mg/dL (8.5-10.5); CREATININE 1.7 mg/dL (0.6-1.3)
[2016-11-15 05:01] LABS: BASOPHIL % 0.3 %; EOSINOPHIL # 0.2 K/uL (0.0-0.5); EOSINOPHIL % 1.6 %; HEMATOCRIT 44.1 % (33.0-50.0); HEMOGLOBIN 14.1 g/dL (11.0-16.0); IMMATURE GRANULOCYTE # 0.1 K/uL (0.0-0.3); IMMATURE GRANULOCYTE % 0.4 %; LYMPHOCYTE # 1.5 K/uL (0.8-4.0); LYMPHOCYTE % 12.9 %; MCH 30.7 pg (27.0-34.0); MCV 96.1 fl (83.0-98.0); MONOCYTE # 1.1 K/uL (0.0-1.0); MONOCYTE % 9.2 %; MPV 12.1 fl (9.4-12.4); NEUTROPHIL # (ANC) 8.6 K/uL (1.4-9.0); NEUTROPHIL % 75.6 %; NRBC % 0 /100WBC (0-0.00); PLATELET COUNT 113 K/uL (150-450); RBC 4.59 M/uL (3.50-5.50); RDW-CV 17.5 % (11.9-14.6); WBC 11.4 K/uL (4.0-11.0)
[2016-11-15 05:23] LABS: ANION GAP 10.5 (10.0-19.0); CALCIUM 8.5 mg/dL (8.5-10.5); CREATININE 1.9 mg/dL (0.6-1.3); POTASSIUM 4.5 mMol/L (3.7-5.1)
== END 2016-11-15 13:10 | disposition swing bed (61) | DRG 987 ==
LOC: GPCU 15:14
PROVIDERS: Family Medicine; Internal Medicine Interventional Cardiology; ADMIT Internal Medicine
PROC: 0T9B70Z Drainage of Bladder with Drainage Device, Via Natural or Artificial Opening (ICD-10-PCS; 2016-11-08)
PROC: 0T5B8ZZ Destruction of Bladder, Via Natural or Artificial Opening Endoscopic (ICD-10-PCS; principal; 2016-11-12)
DX: I50.23 Acute on chronic systolic (congestive) heart failure (principal); J96.01 Acute respiratory failure with hypoxia; I21.4 Non-ST elevation (NSTEMI) myocardial infarction; J69.0 Pneumonitis due to inhalation of food and vomit; N13.8 Other obstructive and reflux uropathy; N17.9 Acute kidney failure, unspecified; E44.0 Moderate protein-calorie malnutrition; Z87.891 Personal history of nicotine dependence; Z79.82 Long term (current) use of aspirin; N40.1 Benign prostatic hyperplasia with lower urinary tract symptoms; R31.0 Gross hematuria; C67.9 Malignant neoplasm of bladder, unspecified; R32 Unspecified urinary incontinence; I34.0 Nonrheumatic mitral (valve) insufficiency; I35.0 Nonrheumatic aortic (valve) stenosis; I12.9 Hypertensive chronic kidney disease with stage 1 through stage 4 chronic kidney disease, or unspecified chronic kidney disease; N18.3 Chronic kidney disease, stage 3 (moderate); R63.0 Anorexia; J44.9 Chronic obstructive pulmonary disease, unspecified
CPT/HCPCS: A9539; A9540; C9113; J0696; J1650; J1940; J2543; J7030; J7040; J7050